=== PATIENT | male | born 1930 | race Caucasian/White ===

== ENCOUNTER 2017-09-08 08:15 | Observation (INO) ==
[2017-09-08] MEDS ORDERED: SALINE FLUSH 10ml SYRINGE IVF PRN (08:25)
[2017-09-08] MEDS ORDERED: CEFTRIAXONE (ER USE ONLY) 1 GM in NS 100 ML IV ONE (08:48)
--- NOTE | 2017-09-08 08:50 | Emergency Department Report ---
General Adult HPI - General Chief complaint: Fever Stated complaint: decreased LOC Time Seen by Provider: 09/08/17 08:25 Source: patient, family, EMS Mode of arrival: EMS Limitations: no limitations - History of Present Illness HPI narrative: 86-year-old male presents to the emergency department with the chief complaint of a fever and not being as active as normal. Patient had a coughing fit yesterday and the group home was concerned for potential aspiration. Patient will only speak in one-word answers and denies any pain or discomfort. He denies any difficulty breathing. Patient states that he has no complaints at this time. arrives and is at bedside. Patient was noted to have a temperature of 101F earlier today. No other complaints or associated symptoms. Patient was at his care facility when his symptoms began earlier today. Patient is a do not resuscitate. - Related Data Home Medications Medication Instructions Recorded Confirmed Acetaminophen [Tylenol] 650 mg PO Q4H PRN 09/08/17 09/08/17 Atorvastatin Calcium 80 mg PO HS 09/08/17 09/08/17 Calcium Carbonate [Tums Ultra] 800 mg PO PRN PRN 09/08/17 09/08/17 Cholecalciferol [Vit. D-3] 1,000 mg PO DAILY 09/08/17 09/08/17 Clopidogrel [Plavix] 75 mg PO DAILY 09/08/17 09/08/17 Famotidine [Pepcid] 20 mg PO DAILY 09/08/17 09/08/17 Guaifenesin/Dextromethorphan 2 tsp PO Q4HPRN PRN 09/08/17 09/08/17 [Guaifenesin Dm Syrup] Melatonin 5 mg PO HS 09/08/17 09/08/17 Milk of Magnesia [Mom] 30 ml PO Q12H PRN 09/08/17 09/08/17 Tamsulosin [Flomax] 0.8 mg PO HS 09/08/17 09/08/17 Previous Rx's Medication Instructions Recorded Lisinopril 40 mg PO DAILY 30 Days #0 06/24/16 CephALEXin [Keflex] 500 mg PO TID #15 cap 09/09/17 Guaifenesin/Dm [Mucinex Dm] 1 tab PO BID #10 tab 09/09/17 Allergies Allergy/AdvReac Type Severity Reaction Status Date / Time Sulfa (Sulfonamide Allergy Unknown Verified 11/05/14 19:26 Antibiotics) Review of Systems Constitutional: Reports: fever, weakness Eyes: Denies: eye pain, vision change ENT: Denies: ear pain, throat pain Cardiovascular: Denies: chest pain, palpitations Respiratory: Reports: cough. Denies: dyspnea Gastrointestinal: Denies: abdominal pain, nausea, vomiting, diarrhea Genitourinary: Denies: dysuria, frequency Musculoskeletal: Denies: back pain, arthralgia Integumentary: Denies: erythema, rash Neurological: Denies: headache, numbness Psychiatric: Denies: anxiety, depression Endocrine: Denies: fatigue, heat or cold intolerance Hematological/Lymphatic: Denies: easy bleeding, easy bruising Allergic/Immunologic: Denies: facial swelling, urticaria PFSH Patient Stated Medical History Cerebrovascular Accident Yes Hypertension Yes Diabetes Mellitus Type 2 Yes Hx Benign Prostatic Yes Hyperplasia Hx Incontinence Yes Clinic Medical History SIRS (systemic inflammatory response syndrome) (Acute Medical) Febrile illness, acute (Acute Medical) Cough (Acute Medical) TIA (transient ischemic attack) (Inactive Medical) Surgical History: Tonsillectomy Family History: Reviewed and Noncontributory. - Social History Smoking status: Former smoker Substance use type: does not use Alcohol intake frequency: does not drink Physical Exam - Limitations Limitations: no limitations - General General appearance: alert, in no apparent distress - Normal Exams: Head:: Normocephalic without trauma Eyes:: Pupils are PERRLA w/ EOMI, No scleral icterus, irritation, or foreign bodies noted ENMT:: No facial trauma, nasal exudates, pharyngeal erythema, or exudates are noted Dental: No fractured, loose, or missing teeth noted Neck:: Full range of motion, without adenopathy, JVD, bruits or thyromegaly Chest/Respirations:: Clear all longoria, with good airflow, and symmetry bilaterally Cardiovascular:: Regular rate and rhythm, without murmur or gallop, Pulses 2+ all extremities, capillary refill, <2 seconds all extremities Abdomen:: Bowel sounds positive, soft, non-tender, non-distended, no hepatosplenomegaly, masses or bruits noted Lymphatic:: No lymphadenopathy, or lymphedema noted Musculoskeletal:: No tenderness, or deformity noted, good range of motion, all extremities Integumentary:: No rashes, hives, or bruising noted, hair and nails, without abnormality Neurological:: Patient is alert, and oriented, cranial nerves, motor/sensory/ cerebellar, exams w/o gross deficits, to observation Psychiatric:: Patient exhibits, appropriate attention, emotion and affect Course Vital Signs Temperature 100.3 F 09/08/17 08:20 Pulse Rate 122 H 09/08/17 08:20 Respiratory Rate 20 09/08/17 08:20 Blood Pressure 138/75 09/08/17 08:20 Pulse Oximetry 91 09/08/17 08:20 Temperature 97.5 F 09/09/17 07:27 Pulse Rate 59 L 09/09/17 07:27 Respiratory Rate 16 09/09/17 07:27 Blood Pressure 122/65 09/09/17 07:27 Pulse Oximetry 94 09/09/17 07:27 Medical Decision Making - MDM Narrative Medical decision making narrative: Labs / imaging were discussed in detail with the patient and family and questions are answered. Patient is given 1 L of normal saline intravenously. Patient is ordered 1 g of Rocephin intravenously at 0848 when sepsis was considered but no source was found to confirm sepsis. Patient does meet SIRS criteria. I do not have a source to diagnose the patient with sepsis. Patient has a clear chest x-ray and unremarkable urinalysis. Patient is discussed with Dr. Abraham Barrera will be admitted to the service of the hospitalist in improved condition. Patient was never hypotensive and had a lactic acid less than 4 in the emergency Department. Patient is admitted to the service of the hospitalist in improved condition. Accepting physician is in agreement with the current plan of management. No further orders. Patient and family are in agreement with the current plan of management. Patient is given 1 L of normal saline intravenously. Patient is ordered 1 g of Rocephin intravenously at 0848 when sepsis was considered but no source of infection was found to confirm sepsis. Patient does meet SIRS criteria. I do not have a source of infection to diagnose the patient with sepsis. Patient has a clear chest x-ray and unremarkable urinalysis. - Differential Diagnosis Viral syndrome, PNA, UTI, Dehydration - Lab Data Result diagrams: 09/09/17 04:26 09/09/17 04:26 Lab Results 09/08/17 09/08/17 09/08/17 Range/Units 08:44 08:44 08:44 WBC 19.7 H (4.5-11.0) T/MM3 RBC 4.75 (4.50-5.90) M/MM3 Hgb 13.7 (13.5-17.5) GM/DL Hct 42.2 (41-53) % MCV 88.8 (80-100) UM3 MCH 28.8 (26-34) UUG MCHC 32.5 (31-37) GM/DL RDW Std Deviation 46.1 (36.9-50.2) FL Plt Count 164 (130-400) T/MM3 MPV 11.2 (9.4-12.4) UM3 Immature Gran % (Auto) Not performed Neut % (Auto) Not performed Lymph % (Auto) Not performed [place] % (Auto) Not performed Eos % (Auto) Not performed Baso % (Auto) Not performed Neut # (Auto) Not performed Lymph # (Auto) Not performed [place] # (Auto) Not performed Eos # (Auto) Not performed Baso # (Auto) Not performed Abs Immat Gran (auto) Not performed Neutrophils % (Manual) 79.0 H (33-66) % Band Neutrophils % 6.0 (0-6) % Lymphocytes % (Manual) 7.0 L (23-45) % Monocytes % (Manual) 8.0 (0-9.0) % Neutrophils # (Manual) 15.6 H (1.8-7.7) T/MM3 Band Neutrophils # 1.2 T/MM3 Lymphocytes # (Manual) 1.4 (1-4.8) T/MM3 Monocytes # (Manual) 1.6 H (0-0.8) T/MM3 RBC Morph Comment Normal Turbidity < 20 (0-20) Sodium 143 (134-144) MEQ/L Potassium 4.2 (3.6-5) MEQ/L Chloride 107 (98-107) MEQ/L Carbon Dioxide 28 (22-30) MEQ/L Anion Gap 8 (5-15) MEQ/L BUN 17.0 (9-20) MG/DL Creatinine 0.8 (0.8-1.5) MG/DL GFR Calculation 91 BUN/Creatinine Ratio 21 (6-26) RATIO Glucose 123 H (75-110) MG/DL Calculated Osmolality 278 (261-280) MOSM/KG Calcium 9.1 (8.4-10.2) MG/DL Total Bilirubin 1.60 H (0.20-1.30) MG/DL Icterus Index < 2 (0-7) AST 21 (17-59) U/L ALT 34 (21-72) U/L Alkaline Phosphatase 71 (38-126) U/L Troponin I < 0.012 (0-0.12) ng/ml Total Protein 6.0 L (6.3-8.2) G/DL Albumin 3.5 (3.5-5.0) G/DL Globulin 2.5 (2.4-3.6) G/DL Albumin/Globulin Ratio 1.4 (1.1-2.2) RATIO Plasma Lactate 1.2 (0.6-2.2) MMOL/L Procalcitonin < 0.05 NG/ML Specimen Hemolysis < 15 (0-25) Ur Collection Type Urine Color (YELLOW) Urine Clarity Urine pH (5.0-8.0) Ur Specific [place] (1.015-1.025) Urine Protein (NEGATIVE) Urine Glucose (UA) (NEGATIVE) Urine Ketones (NEGATIVE) Urine Occult Blood (NEGATIVE) Urine Nitrate (NEGATIVE) Urine Bilirubin (NEGATIVE) Urine Urobilinogen (NORMAL) EU/DL Ur Leukocyte Esterase (NEGATIVE) Urinalysis Comment 09/08/17 Range/Units 10:06 WBC (4.5-11.0) T/MM3 RBC (4.50-5.90) M/MM3 Hgb (13.5-17.5) GM/DL Hct (41-53) % MCV (80-100) UM3 MCH (26-34) UUG MCHC (31-37) GM/DL RDW Std Deviation (36.9-50.2) FL Plt Count (130-400) T/MM3 MPV (9.4-12.4) UM3 Immature Gran % (Auto) Neut % (Auto) Lymph % (Auto) [place] % (Auto) Eos % (Auto) Baso % (Auto) Neut # (Auto) Lymph # (Auto) [place] # (Auto) Eos # (Auto) Baso # (Auto) Abs Immat Gran (auto) Neutrophils % (Manual) (33-66) % Band Neutrophils % (0-6) % Lymphocytes % (Manual) (23-45) % Monocytes % (Manual) (0-9.0) % Neutrophils # (Manual) (1.8-7.7) T/MM3 Band Neutrophils # T/MM3 Lymphocytes # (Manual) (1-4.8) T/MM3 Monocytes # (Manual) (0-0.8) T/MM3 RBC Morph Comment Turbidity (0-20) Sodium (134-144) MEQ/L Potassium (3.6-5) MEQ/L Chloride (98-107) MEQ/L Carbon Dioxide (22-30) MEQ/L Anion Gap (5-15) MEQ/L BUN (9-20) MG/DL Creatinine (0.8-1.5) MG/DL GFR Calculation BUN/Creatinine Ratio (6-26) RATIO Glucose (75-110) MG/DL Calculated Osmolality (261-280) MOSM/KG Calcium (8.4-10.2) MG/DL Total Bilirubin (0.20-1.30) MG/DL Icterus Index (0-7) AST (17-59) U/L ALT (21-72) U/L Alkaline Phosphatase (38-126) U/L Troponin I (0-0.12) ng/ml Total Protein (6.3-8.2) G/DL Albumin (3.5-5.0) G/DL Globulin (2.4-3.6) G/DL Albumin/Globulin Ratio (1.1-2.2) RATIO Plasma Lactate (0.6-2.2) MMOL/L Procalcitonin NG/ML Specimen Hemolysis (0-25) Ur Collection Type Urine, catheter Urine Color Yellow (YELLOW) Urine Clarity Clear Urine pH 6.5 (5.0-8.0) Ur Specific [place] 1.015 (1.015-1.025) Urine Protein Negative (NEGATIVE) Urine Glucose (UA) Negative (NEGATIVE) Urine Ketones Negative (NEGATIVE) Urine Occult Blood Negative (NEGATIVE) Urine Nitrate Negative (NEGATIVE) Urine Bilirubin Negative (NEGATIVE) Urine Urobilinogen 1.0 (NORMAL) EU/DL Ur Leukocyte Esterase Negative (NEGATIVE) Urinalysis Comment Microscopic not ind. - Radiology Data CT HEAD - No acute processes. CXR - No acute processes. - EKG Data EKG #1 EKG results narrative: Sinus Tachycardia. 116 bpm. No STEMI. Disposition Clinical Impression: Tachycardia, SIRS (systemic inflammatory response syndrome) Fever Qualifiers: Encounter type: initial encounter Leukocytosis Qualifiers: Leukocytosis type: unspecified Qualified Code(s): D72.829 - Elevated white blood cell count, unspecified Disposition: 02 To [facility] Condition: Stable Time of Disposition: 11:00 (Admit. Dr. Callahan. ) - Seen By: physician
[2017-09-08] MEDS ORDERED: NS 1,000 ML IV ONE (09:14)
--- NOTE | 2017-09-08 09:16 | XRay Report ---
EXAM: XR chest 1V 0855 hours COMPARISON: 06/23/2016. HISTORY: cough . FINDINGS:There is tortuosity to the descending aorta. Heart is upper limits of normal to mildly enlarged. The pulmonary vascularity appears unremarkable. There are linear opacities seen at the lung bases representing atelectasis. There is no evidence for pleural effusion. There is no evidence for a pneumothorax. No osseous abnormalities are identified. IMPRESSION: 1. Mild basilar atelectatic changes. 2. Heart is upper limits of normal to mildly enlarged. [place] [facility] [place]
--- NOTE | 2017-09-08 09:28 | CT Scan Report ---
EXAM: CT head/brain wo con COMPARISON: 05/12/2017. 11/05/2014. HISTORY: ams . Altered mental status. LOCATION OF DICTATION: [facility] – [place], [place]. TECHNIQUE: Without IV contrast, axial images were obtained through the brain and reviewed in brain, soft tissue, bone, and subdural windows. The current CT scan was performed using radiation dose-reduction techniques. FINDINGS: The CSF spaces are prominent likely related to atrophy in keeping with age. There is again noted extensive periventricular deep white matter hypodensities likely related to small vessel ischemic disease. The suprasellar cistern and quadrigeminal plate cisterns are intact. The johnson-white junctions are distinct. No sulcal effacement is identified. The basal ganglia, posterior fossa and brainstem region appear unremarkable. There is no evidence for midline shift or mass effect. The midline structures appear unremarkable. No osseous abnormalities are identified. There is complete aspiration of the right maxilla sinus which could be related sinusitis. The remainder of the paranasal sinuses and mastoid air cells are clear. This is slightly worsened compared to the prior exam. IMPRESSION: 1. Atrophy in keeping with age. 2. Extensive periventricular deep white matter hypodensities are noted likely related to small vessel ischemic disease. 3. There is now complete opacification of the right maxillary sinus which has worsened compared to the prior exam. This is likely related to sinusitis. Note: This report was generated soon after the exam was performed and is immediately available to the ordering clinician on 09/08/2017 9:23 AM. .
[2017-09-08 12:04] VITALS: BMI 26.4
[2017-09-08] MEDS: NS 1,000 ML IV SCH ×2 (12:15→22:43)
--- NOTE | 2017-09-08 12:35 | History & Physical Report ---
History of Present Illness Date: 09/08/17 Chief complaint: febrile illness, decreased level of consciousness HPI: Masood Mcgee is a very pleasant 86-year-old male resident at [facility] who presented to [facility] ED today, 09/08/17, for evaluation of fever and decreased level of consciousness. His is present on exam and contributes to the history. She reports that her daughter called her this morning to inform her that nursing from [facility] had call her to let her know that Masood was sick. Jes, the patient's , lives on the 3rd floor at [facility] in independent living and went to Masood's room, arriving in time to see EMS loading him onto the stretcher for transport. Masood reports that he feels ok. He admits to a recent cough but denies any known fevers, chill, chest pain , shortness of breath, abdominal pain, nausea, vomiting or dysuria. He states that his cough is non-productive. He also reports that his appetite has been declining the past few days. He denies any diarrhea or constipation. Upon arrival to the ED, he was noted to have an elevated temperature at 100.3. He was also tachycardic at 122 with a respiratory rate of 20 and pulse ox of 91% on room air. Labs were obtained revealing leukocytosis with WBC 19.7, 79% neutrophils and 6% bands and hyperglycemia with glucose at 123. Troponin was negative. Lactate was 1.2 and procalcitonin was <0.05. UA was unremarkable. CT head was obtained given his altered mental status and showed atrophy consistent with his age, extensive periventricular deep white matter hypodensities most likely related to small vessel ischemic disease and complete opacification of the right maxillary sinus consistent with sinusitis. Chest x- ray revealed mild basilar atelectatic changes and heart was at the upper limits of normal to mildly enlarged. In light of his fever and leukocytosis, he was given Rocephin 1g IV for empiric treatment as well as 1L NS bolus. Dr. Barrera was contacted and he was admitted into observation status for further evaluation and treatment. His length of stay is not expected to exceed more than 2 over nights. He has a known history of hypertension, BPH and cardiovascular disease with prior TIAs. He follows with Dr. Franck Stallings. Review of Systems All systems PM: 10-point ROS was reviewed, no additional remarkable complaints except - Constitutional Constitutional: Present: daytime sleepiness, fatigue, malaise, weakness. Absent : chills, fever(s), headache(s) - EENMT Eyes: Absent: change in vision, photophobia Ears: Absent: ear pain Balance: Absent: falling to one side Nose: Absent: nosebleeds Mouth/Throat: Absent: sore throat, dry mouth - Cardiovascular Cardiovascular: Present: edema. Absent: chest pain, palpitations, syncope Rhythm: Present: regular rhythm Vascular: Present: pedal edema - Respiratory Respiratory: Present: cough. Absent: dyspnea, hemoptysis, wheezing - Gastrointestinal Gastrointestinal: Absent: abdominal pain, change in bowel habits, constipation, diarrhea, nausea, vomiting - Genitourinary Genitourinary: Present: urinary frequency. Absent: dysuria, flank pain, hematuria - Musculoskeletal Musculoskeletal: Present: muscle weakness. Absent: back pain, deformity, neck pain - Integumentary/Breasts Integumentary: Present: other (eczema). Absent: rash - Neurological Neurological: Present: memory loss, weakness. Absent: abnormal movements, dizziness, focal weakness, headache(s), tremor(s) - Psychiatric Psychiatric: Absent: anxiety, depression, hallucinations - Endocrine Endocrine: Present: flushing. Absent: palpitations - Hematologic/Lymphatic Hematologic/Lymphatic: Absent: easy bruising - Allergic/Immunologic Allergic/Immunologic: Absent: seasonal rhinorrhea [facility] Patient Stated Medical History Hypertension. 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 Cardiovascular disease. History of urinary incontinence. BPH. CAD. Dysphagia. Hyperlipidemia. Type II Diabetes, no complications. Gait instability. GERD. Surgical History: Tonsillectomy. Family History Updates: Mother - , age 75, "heart problems". Father - , age 67, "heart problems", [place]. 2 living daughters and 1 living son reportedly all healthy. Son - , age 14, rhabdomyosarcoma. - Social History Smoking status: Former smoker (quit 1974.) Substance use type: does not use Alcohol intake frequency: does not drink Housing: prison Household members: spouse Current occupational status: retired Does patient use chewing tobacco?: No Current residence: [facility] Social history: PCP - Dr. Stallings. Patient is to Jes, for the past 64 years with 3 living children and 1 son. Medications Home Medications Medication Instructions Recorded Confirmed Type Acetaminophen [Tylenol] 650 mg PO Q4H PRN 09/08/17 09/08/17 History Atorvastatin Calcium 80 mg PO HS 09/08/17 09/08/17 History Calcium Carbonate [Tums Ultra] 800 mg PO PRN PRN 09/08/17 09/08/17 History Cholecalciferol [Vit. D-3] 1,000 mg PO DAILY 09/08/17 09/08/17 History Clopidogrel [Plavix] 75 mg PO DAILY 09/08/17 09/08/17 History Famotidine [Pepcid] 20 mg PO DAILY 09/08/17 09/08/17 History Guaifenesin/Dextromethorphan 2 tsp PO Q4HPRN PRN 09/08/17 09/08/17 History [Guaifenesin Dm Syrup] Melatonin 5 mg PO HS 09/08/17 09/08/17 History Milk of Magnesia [Mom] 30 ml PO Q12H PRN 09/08/17 09/08/17 History Tamsulosin [Flomax] 0.8 mg PO HS 09/08/17 09/08/17 History Allergies Allergy/AdvReac Type Severity Reaction Status Date / Time Sulfa (Sulfonamide Allergy Unknown Verified 11/05/14 19:26 Antibiotics) Exam Vital Signs: Temperature 99.3 F 09/08/17 11:41 Pulse Rate 110 H 09/08/17 11:41 Respiratory Rate 18 09/08/17 11:41 Blood Pressure 116/69 09/08/17 11:41 Pulse Oximetry 92 09/08/17 11:41 Telemetry Rhythm: Sinus Tachycardia (rate 100) Height/Weight/BMI: Height 5 ft 7 in Weight 169 lb 1.513 oz Body Mass Index 26.4 Comments: Patient is seen shortly after his arrival to room 144 with his nurse and , Jes, present on exam. - Constitutional Present: no acute distress, well nourished, well developed, cooperative - Routine HEENT Exam Head: Present: normocephalic, atraumatic Eye: Present: PERRL. Absent: conjunctival icterus ENT: Present: mucous membranes dry - Routine Neck Exam Present: supple, trachea midline - Routine Chest/Breast/Axilla Exam Chest wall: Absent: tenderness - Routine Respiratory Exam Present: decreased breath sounds, CTA bilaterally. Absent: respiratory distress , stridor, wheezes, crackles - Routine Cardiovascular Exam Present: RRR, S1, S2 - Routine Abdominal Exam Present: soft, normoactive bowel sounds, non tender - Routine Extremities Exam Present: edema (2-3+ bilaterally), pulses intact - Routine Back/Spine/Pelvis Exam Back/Spine: Present: full ROM, kyphosis. Absent: vertebral tenderness, erythema - Routine Skin Exam Present: intact, dry, warm. Absent: jaundice Comments: eczema; low grade temperature at 100.3. - Routine Neurological Exam Present: alert, moving all extremities, hearing grossly intact, normal speech. Absent: facial asymmetry patient orientated to person and place but unable to recall some information regarding situation and recent health. - Routine Psychiatric Exam Present: cooperative - Additional findings Additional findings: Holly Lungs: decrease, but no crackles/wheezes/distress CV: regular MSE: awake alert , speech slow. Results - Labs CBC & Chem 7: 09/08/17 08:44 09/08/17 08:44 - Imaging and Cardiology Chest x-ray Status: image reviewed by me Additional comments: Date of Exam: 09/08/17 Type of Exam(s): XR chest 1V EXAM: XR chest 1V 0855 hours IMPRESSION: 1. Mild basilar atelectatic changes. 2. Heart is upper limits of normal to mildly enlarged. CT scan - head Status: image reviewed by me Additional comments: Date of Exam: 09/08/17 Type of Exam(s): CT head/brain wo con COMPARISON: 05/12/2017. 11/05/2014. IMPRESSION: 1. Atrophy in keeping with age. 2. Extensive periventricular deep white matter hypodensities are noted likely related to small vessel ischemic disease. 3. There is now complete opacification of the right maxillary sinus which has worsened compared to the prior exam. This is likely related to sinusitis. Assessment and Plan (1) SIRS (systemic inflammatory response syndrome) Current visit: Yes Status: Acute (2) Febrile illness, acute Current visit: Yes Status: Acute (3) Cough Current visit: Yes Status: Acute Assessment and Plan: Assessment. SIRS, present on admission as indicated by leukocytosis, fever, tachycardia, tachypnea and concern for AMS. Leukocytosis, present on admission. Hypertension. 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 Cardiovascular disease. History of BPH and urinary incontinence. Dysphagia. Hyperlipidemia. Type II Diabetes, no complications. Gait instability. GERD. Plan - 09/08/17 (Admission). Admit to observation status under the care of Dr. Barrera. Will obtain respiratory panel to assess for viral cause as patient admits to recent dry cough. Patient admits to having received his flu shot this year. Consider initiation of Tamiflu if influenza positive. Rocephin 1g IV given in ED. Will continue Rocephin for empiric antimicrobial coverage. Mucinex for mucolytic effect. CT head revealed complete opacification of right maxillary sinus. Patient denies any facial pain or sinus pressure. No facial cellulitis. CXR revealed mild basilar atelectatic changes with questionable cardiomegaly. Clear lung sounds on exam without cough or respiratory distress. Encourage incentive spirometry. Lactate 1.2 on admission. Blood cultures pending. Will recheck and continue to monitor. Procalcitonin <0.05 and troponin <0.012. Recheck CXR tomorrow to see if any pneumonia developed with hydration. Tylenol as needed for fever/pain. NS 75cc/hr for hydration and encourage oral intake. 1L NS bolus given in ED. Monitor closely for signs of fluid overload. Monitor daily weights closely. Continue to medications - patient may take his own medications. History of dysphagia. Will consult speech for diet consistency recommendations as chart states thin liquids but patient's reports that he has his liquids thickened. Mechanical soft with ground meats. Monitor closely as he is a high aspiration risk. Monitor closely on telemetry. Oxygen as needed to maintain pulse ox >90%. He does not use oxygen at home and is not currently on oxygen. SCDs for DVT prophylaxis. Repeat CBC and BMP in AM to monitor blood counts, electrolytes and renal function. Patient is noted to be a DNR. Upon discharge, patient's care will be returned to his PCP, Dr. Stallings. Holly Have independently interviewed and examined pt. Chart reviewed. Case discussed with ED physician and my PA. Care plan developed with my supervision; agree with above. Has been having cough, last night problematic. This morning temp elevated at his alf at 101. More somnolent. Patient feeling very weak. Oral drive decreased the past several days. Patient denies pain or discomfort. Not hurting in chest from cough. Breathing not feeling short. No nausea or ab pain. With decreased LOC and temp elevation, taken to ED for evaluation. WBC with elevation. Patient Tachy. Given IVF and Rocephin. CXR without infiltrate. UA negative. Patient placed in OBS for further evaluation. DVT Prophylaxis: SCD's GI Prophylaxis: Pepcid Resuscitation Status: Do Not Resuscitate - Time spent with patient Time with patient PN: 70 minutes Sepsis Assessment - Evaluation Possible source: unknown Confirmed Suspected Infection: No SIRS Criteria: acute mental status change, temperature > or equal to 100.4, pulse > or equal to 90 beats/minute, WBC > or equal to 12,000, RR > or equal to 20 Hospital Course Summary Disclaimer: The visit summary below is not to be considered part of the above Progress Note. Hospital Course: Assessment. SIRS, present on admission as indicated by leukocytosis, fever, tachycardia, tachypnea and concern for AMS. Leukocytosis, present on admission. Hypertension. 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 Cardiovascular disease. History of BPH and urinary incontinence. Dysphagia. Hyperlipidemia. Type II Diabetes, no complications. Gait instability. GERD. Plan - 09/08/17 (Admission). Admit to observation status under the care of Dr. Barrera. Will obtain respiratory panel to assess for viral cause as patient admits to recent dry cough. Patient admits to having received his flu shot this year. Consider initiation of Tamiflu if influenza positive. Rocephin 1g IV given in ED. Will continue Rocephin for empiric antimicrobial coverage. Mucinex for mucolytic effect. CT head revealed complete opacification of right maxillary sinus. Patient denies any facial pain or sinus pressure. No facial cellulitis. CXR revealed mild basilar atelectatic changes with questionable cardiomegaly. Clear lung sounds on exam without cough or respiratory distress. Encourage incentive spirometry. Lactate 1.2 on admission. Blood cultures pending. Will recheck and continue to monitor. Procalcitonin <0.05 and troponin <0.012. Tylenol as needed for fever/pain. NS 75cc/hr for hydration and encourage oral intake. 1L NS bolus given in ED. Monitor closely for signs of fluid overload. Monitor daily weights closely. Continue to medications - patient may take his own medications. History of dysphagia. Will consult speech for diet consistency recommendations as chart states thin liquids but patient's reports that he has his liquids thickened. Mechanical soft with ground meats. Monitor closely as he is a high aspiration risk. Monitor closely on telemetry. Oxygen as needed to maintain pulse ox >90%. He does not use oxygen at home and is not currently on oxygen. SCDs for DVT prophylaxis. Repeat CBC and BMP in AM to monitor blood counts, electrolytes and renal function. Patient is noted to be a DNR. Upon discharge, patient's care will be returned to his PCP, Dr. Stallings. Addendum entered and electronically signed by DREW Velazquez 09/08/17 15: 10: Nursing expressed concern about a circular lesion noted to the patient's left lateral knee. Re-evaluation of the patient's lower extremities revealed area consistent with psoriasis without discharge, red streaking or signs of infection. SCDs were removed during exam and significant depressions were noted due to the patient's pitting edema. Will place MAXI hose in light of significant edema. Left lower extremity larger than right. Respiratory panel negative. 2+ pedal pulses bilaterally. Given the patient's increased swelling to left>right, will obtained doppler of left lower extremity now - results pending.
[2017-09-08] MEDS ORDERED: ACETAMINOPHEN 500 MG TABLET PO PRN (13:13)
[2017-09-08] MEDS ORDERED: CALCIUM CARBONATE Chewable 750mg TABLET PO PRN (13:13)
[2017-09-08] MEDS ORDERED: ONDANSETRON 4 MG/2 ML INJECTION IVP PRN (14:13)
--- NOTE | 2017-09-08 16:22 | Ultrasound Report ---
Indication: Left lower extremity swelling PROCEDURE: US venous doppler LE LT: Encounter: Initial Comparison: None Technique: Color Doppler duplex and grayscale sonographic imaging of the left lower extremity was performed. Findings: There is no evidence for acute deep venous thrombosis in the left thigh. Specifically, serial graded compression was performed from the inguinal ligament to the popliteal bifurcation, on the left thigh, demonstrating appropriate compressibility of the deep venous system. In addition, color and pulsed Doppler demonstrate appropriate spontaneous flow, variation with respiration, and augmentation with calf compression. At the ankle, normal flow is identified in the posterior tibial veins; these vessels are also normal in caliber. Impression: No evidence of acute DVT in the left lower limb. .
[2017-09-08] MEDS: GUAIFENESIN/D-METHORPHAN 600mg/30mg TABLET PO SCH (20:15)
[2017-09-08] MEDS ORDERED: ATORVASTATIN 40 MG TABLET PO SCH (21:00)
[2017-09-08] MEDS ORDERED: TAMSULOSIN 0.4 MG CAPSULE PO SCH (21:00)
[2017-09-08] MEDS ORDERED: MELATONIN 5 MG TABLET PO SCH (21:00)
[2017-09-09 07:28] VITALS: BP 122/65; PULSE 59; RESP 16; TEMP 97.5; O2SAT 94
[2017-09-09] MEDS: NS 1,000 ML IV SCH (08:59)
[2017-09-09] MEDS: GUAIFENESIN/D-METHORPHAN 600mg/30mg TABLET PO SCH (08:59)
[2017-09-09] MEDS ORDERED: CLOPIDOGREL 75 MG TABLET PO SCH (09:00)
[2017-09-09] MEDS ORDERED: FAMOTIDINE 20 MG TABLET PO SCH (09:00)
[2017-09-09] MEDS ORDERED: CEFTRIAXONE 1 G in NS 100 ML IV SCH (09:00)
[2017-09-09] MEDS ORDERED: LISINOPRIL 20 MG TABLET PO SCH (09:00)
--- NOTE | 2017-09-09 09:03 | XRay Report ---
INDICATION: F/U - ? inflitrate PROCEDURE: CHEST 2-VIEWS UPRIGHT (PA & LAT) Encounter: Initial COMPARISON: September 08, 2017 FINDINGS: The lungs are stable in appearance. There is some airspace opacity in the posterior left lower lobe retrocardiac region. No pneumothorax or definite effusion. Heart size and mediastinal contours are stable. Pulmonary vascularity is mildly enlarged. Impression: 1. Left lower lobe airspace disease could represent atelectasis or pneumonia. 2. Mild pulmonary vascular congestion. .
--- NOTE | 2017-09-09 11:29 | Progress Note ---
- Date 09/09/17 Subjective: F/U: SIRS, Febrile process, Cough Doing better this morning-not feeling as weak and confused as yesterday. Able to be up and ambulate better-strength still decreased but not feeling dizzy or unsteady when up. Not having cough or congestion. No SOA or wheezing; breathing on RA without difficulty. No pain with breathing. Eating well-no mouth pain, difficulty swallowing, nausea, or ab pain. Had bowel movement this am-no diarrhea. Urinating okay. No f/c. Objective Vital signs: Temperature 97.5 F 09/09/17 07:27 Pulse Rate 59 L 09/09/17 07:27 Respiratory Rate 16 09/09/17 07:27 Blood Pressure 122/65 09/09/17 07:27 Pulse Oximetry 94 09/09/17 07:27 Height/Weight/BMI: Height 1.7 m Weight 77.5 kg Body Mass Index 26.4 - Constitutional Present: no acute distress, well nourished, well developed, average body habitus , cooperative. Absent: agitated, somnolent - Routine HEENT Exam Head: Present: normocephalic, atraumatic Eye: Present: EOMI, PERRL ENT: Present: mucous membranes moist - Routine Respiratory Exam Present: CTA bilaterally. Absent: rales, respiratory distress, rhonchi, wheezes , crackles - Routine Cardiovascular Exam Present: RRR, no murmur - Routine Abdominal Exam Present: soft, normoactive bowel sounds, non distended, non tender. Absent: guarding - Routine Extremities Exam Present: edema (+2 LE, MAXI hose in place ). Absent: cyanosis, clubbing - Routine Musculoskeletal Exam Musculoskeletal: Present: no clubbing or cyanosis, normal strength - Routine Skin Exam Present: dry, warm - Routine Neurological Exam Present: alert, oriented X3, CN II-XII intact, moving all extremities, vision grossly intact, hearing grossly intact, normal speech. Absent: motor deficit, altered mental status - Routine Psychiatric Exam Present: normal affect, cooperative. Absent: anxious, agitated Results - Labs CBC & Chem 7: 09/09/17 04:26 09/09/17 04:26 Assessment and Plan (1) SIRS (systemic inflammatory response syndrome) Current visit: Yes Status: Acute (2) Febrile illness, acute Current visit: Yes Status: Acute (3) Cough Current visit: Yes Status: Acute Assessment and Plan: Assessment. SIRS, present on admission as indicated by leukocytosis, fever, tachycardia, tachypnea and concern for AMS. Leukocytosis, present on admission. Hypertension. 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 Cardiovascular disease. History of BPH and urinary incontinence. Dysphagia. Hyperlipidemia. Type II Diabetes, no complications. Gait instability. GERD. Plan WBC normalized, febrile process resolve, mentation at baseline. Repeat CXR with small area or atelectasis vs pneumonia - likely early pneumonia. With respiratory and clinic status improved, feel discharge to home reasonable. Initiate cephalexin 500mg po TID for 5 days starting tomorrow for respiratory coverage. Can continue Mucinex DM BID for 5 days. Will set up PT at his care facility to help improve strength. F/U wit Dr Stallings in 1 week for evaluation. See orders for details. Case discussed with CM and patients . Time spent with care and discharge greater than 30 minutes. DVT Prophylaxis: SCD's Resuscitation Status: Do Not Resuscitate Hospital Course Summary Disclaimer: The visit summary below is not to be considered part of the above Progress Note. Hospital Course: Assessment. SIRS, present on admission as indicated by leukocytosis, fever, tachycardia, tachypnea and concern for AMS. Leukocytosis, present on admission. Hypertension. 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 Cardiovascular disease. History of BPH and urinary incontinence. Dysphagia. Hyperlipidemia. Type II Diabetes, no complications. Gait instability. GERD. Plan - 09/08/17 (Admission) Admit to observation status under the care of Dr. Barrera. Will obtain respiratory panel to assess for viral cause as patient admits to recent dry cough. Patient admits to having received his flu shot this year. Consider initiation of Tamiflu if influenza positive. Rocephin 1g IV given in ED. Will continue Rocephin for empiric antimicrobial coverage. Mucinex for mucolytic effect. CT head revealed complete opacification of right maxillary sinus. Patient denies any facial pain or sinus pressure. No facial cellulitis. CXR revealed mild basilar atelectatic changes with questionable cardiomegaly. Clear lung sounds on exam without cough or respiratory distress. Encourage incentive spirometry. Lactate 1.2 on admission. Blood cultures pending. Will recheck and continue to monitor. Procalcitonin <0.05 and troponin <0.012. Recheck CXR tomorrow to see if any pneumonia developed with hydration. Tylenol as needed for fever/pain. NS 75cc/hr for hydration and encourage oral intake. 1L NS bolus given in ED. Monitor closely for signs of fluid overload. Monitor daily weights closely. Continue to medications - patient may take his own medications. History of dysphagia. Will consult speech for diet consistency recommendations as chart states thin liquids but patient's reports that he has his liquids thickened. Mechanical soft with ground meats. Monitor closely as he is a high aspiration risk. Monitor closely on telemetry. Oxygen as needed to maintain pulse ox >90%. He does not use oxygen at home and is not currently on oxygen. SCDs for DVT prophylaxis. Repeat CBC and BMP in AM to monitor blood counts, electrolytes and renal function. Patient is noted to be a DNR. Upon discharge, patient's care will be returned to his PCP, Dr. Stallings. 09/09/17 WBC normalized, febrile process resolve, mentation at baseline. Repeat CXR with small area or atelectasis vs pneumonia - likely early pneumonia. With respiratory and clinic status improved, feel discharge to home reasonable. Initiate cephalexin 500mg po TID for 5 days starting tomorrow for respiratory coverage. Can continue Mucinex DM BID for 5 days. Will set up PT at his care facility to help improve strength. F/U kenyatta Stallings in 1 week for evaluation. See orders for details.
--- NOTE | 2017-09-09 11:55 | Discharge Summary ---
Discharge Information Date of admission: 09/08/17 10:35 Anticipated date of discharge: 09/09/17 Attending Physician: Abraham Barrera MD Primary care physician: Dakota Stallings MD Consults: Speech Therapy - Discharge Diagnosis (1) SIRS (systemic inflammatory response syndrome) Status: Acute (2) Febrile illness, acute Status: Acute (3) Cough Status: Acute Discharge diagnosis SIRS, present on admission as indicated by leukocytosis, fever, tachycardia, tachypnea and concern for AMS. 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 Cardiovascular disease History of BPH and urinary incontinence Dysphagia Hyperlipidemia Type II Diabetes, no complications Gait instability GERD - Laboratory Labs: Admit Lab 09/08/17 08:44 WBC 19.7 H Hgb 13.7 Hct 42.2 MCV 88.8 Neutrophils % (Manual) 79.0 H Band Neutrophils % 6.0 Lymphocytes % (Manual) 7.0 L Monocytes % (Manual) 8.0 Admit Lab 09/08/17 08:44 Sodium 143 Potassium 4.2 Chloride 107 Carbon Dioxide 28 Anion Gap 8 BUN 17.0 Creatinine 0.8 GFR Calculation 91 BUN/Creatinine Ratio 21 Glucose 123 H Calculated Osmolality 278 Total Bilirubin 1.60 H AST 21 ALT 34 Alkaline Phosphatase 71 Troponin I < 0.012 Total Protein 6.0 L Albumin 3.5 Globulin 2.5 Plasma Lactate 1.2 09/09/17 04:26 09/09/17 04:26 - Radiology Radiology: Date of Exam: 09/08/17 EXAM: XR chest 1V FINDINGS:There is tortuosity to the descending aorta. Heart is upper limits of normal to mildly enlarged. The pulmonary vascularity appears unremarkable. There are linear opacities seen at the lung bases representing atelectasis. There is no evidence for pleural effusion. There is no evidence for a pneumothorax. No osseous abnormalities are identified. IMPRESSION: 1. Mild basilar atelectatic changes. 2. Heart is upper limits of normal to mildly enlarged. Date of Exam: 09/08/17 EXAM: CT head/brain wo con FINDINGS: The CSF spaces are prominent likely related to atrophy in keeping with age. There is again noted extensive periventricular deep white matter hypodensities likely related to small vessel ischemic disease. The suprasellar cistern and quadrigeminal plate cisterns are intact. The johnson-white junctions are distinct. No sulcal effacement is identified. The basal ganglia, posterior fossa and brainstem region appear unremarkable. There is no evidence for midline shift or mass effect. The midline structures appear unremarkable. No osseous abnormalities are identified. There is complete aspiration of the right maxilla sinus which could be related sinusitis. The remainder of the paranasal sinuses and mastoid air cells are clear. This is slightly worsened compared to the prior exam. IMPRESSION: 1. Atrophy in keeping with age. 2. Extensive periventricular deep white matter hypodensities are noted likely related to small vessel ischemic disease. 3. There is now complete opacification of the right maxillary sinus which has worsened compared to the prior exam. This is likely related to sinusitis. Date of Exam: 09/08/17 PROCEDURE: US venous doppler LE Impression: No evidence of acute DVT in the left lower limb. Date of Exam: 09/09/17 PROCEDURE: CHEST 2-VIEWS UPRIGHT (PA & LAT) FINDINGS: The lungs are stable in appearance. There is some airspace opacity in the posterior left lower lobe retrocardiac region. No pneumothorax or definite effusion. Heart size and mediastinal contours are stable. Pulmonary vascularity is mildly enlarged. Impression: 1. Left lower lobe airspace disease could represent atelectasis or pneumonia. 2. Mild pulmonary vascular congestion. History of Present Illness HPI: Masood Mcgee is a very pleasant 86-year-old male resident at [facility] who presented to [facility] today, 09/08/17, for evaluation of fever and decreased level of consciousness. His is present on exam and contributes to the history. She reports that her daughter called her this morning to inform her that nursing from [facility] had call her to let her know that Masood was sick. Jes, the patient's , lives on the 3rd floor at [facility] in independent living and went to Masood's room, arriving in time to see EMS loading him onto the stretcher for transport. Masood reports that he feels ok. He admits to a recent cough but denies any known fevers, chill, chest pain , shortness of breath, abdominal pain, nausea, vomiting or dysuria. He states that his cough is non-productive. He also reports that his appetite has been declining the past few days. He denies any diarrhea or constipation. Upon arrival to the ED, he was noted to have an elevated temperature at 100.3. He was also tachycardic at 122 with a respiratory rate of 20 and pulse ox of 91% on room air. Labs were obtained revealing leukocytosis with WBC 19.7, 79% neutrophils and 6% bands and hyperglycemia with glucose at 123. Troponin was negative. Lactate was 1.2 and procalcitonin was <0.05. UA was unremarkable. CT head was obtained given his altered mental status and showed atrophy consistent with his age, extensive periventricular deep white matter hypodensities most likely related to small vessel ischemic disease and complete opacification of the right maxillary sinus consistent with sinusitis. Chest x- ray revealed mild basilar atelectatic changes and heart was at the upper limits of normal to mildly enlarged. In light of his fever and leukocytosis, he was given Rocephin 1g IV for empiric treatment as well as 1L NS bolus. Dr. Barrera was contacted and he was admitted into observation status for further evaluation and treatment. His length of stay is not expected to exceed more than 2 over nights. He has a known history of hypertension, BPH and cardiovascular disease with prior TIAs. He follows with Dr. Franck Stallings. For complete details of the H&P refer to that document. Objective Vital signs: Temperature 97.5 F 09/09/17 07:27 Pulse Rate 59 L 09/09/17 07:27 Respiratory Rate 16 09/09/17 07:27 Blood Pressure 122/65 09/09/17 07:27 Pulse Oximetry 94 09/09/17 07:27 Height/Weight/BMI: Height 1.7 m Weight 77.5 kg Body Mass Index 26.4 Hospital Course This is a general summary of the patient's hospital course. For more details refer to the complete medical record. Hospital course: Assessment. SIRS, present on admission as indicated by leukocytosis, fever, tachycardia, tachypnea and concern for AMS. Leukocytosis, present on admission. Hypertension. 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 Cardiovascular disease. History of BPH and urinary incontinence. Dysphagia. Hyperlipidemia. Type II Diabetes, no complications. Gait instability. GERD. Plan - 09/08/17 (Admission) Admit to observation status under the care of Dr. Barrera. Will obtain respiratory panel to assess for viral cause as patient admits to recent dry cough. Patient admits to having received his flu shot this year. Consider initiation of Tamiflu if influenza positive. Rocephin 1g IV given in ED. Will continue Rocephin for empiric antimicrobial coverage. Mucinex for mucolytic effect. CT head revealed complete opacification of right maxillary sinus. Patient denies any facial pain or sinus pressure. No facial cellulitis. CXR revealed mild basilar atelectatic changes with questionable cardiomegaly. Clear lung sounds on exam without cough or respiratory distress. Encourage incentive spirometry. Lactate 1.2 on admission. Blood cultures pending. Will recheck and continue to monitor. Procalcitonin <0.05 and troponin <0.012. Recheck CXR tomorrow to see if any pneumonia developed with hydration. Tylenol as needed for fever/pain. NS 75cc/hr for hydration and encourage oral intake. 1L NS bolus given in ED. Monitor closely for signs of fluid overload. Monitor daily weights closely. Continue to medications - patient may take his own medications. History of dysphagia. Will consult speech for diet consistency recommendations as chart states thin liquids but patient's reports that he has his liquids thickened. Mechanical soft with ground meats. Monitor closely as he is a high aspiration risk. Monitor closely on telemetry. Oxygen as needed to maintain pulse ox >90%. He does not use oxygen at home and is not currently on oxygen. Monitor respiratory status. Hold lisinopril due to acute febrile illness to minimize risk for hypotension. Monitor blood pressure. SCDs for DVT prophylaxis. Repeat CBC and BMP in AM to monitor blood counts, electrolytes and renal function. Patient is noted to be a DNR. Upon discharge, patient's care will be returned to his PCP, Dr. Stallings. 09/09/17 WBC normalized, febrile process resolve, mentation at baseline. Repeat CXR with small area or atelectasis vs pneumonia - likely early pneumonia. With respiratory and clinic status improved, feel discharge to home reasonable. Initiate cephalexin 500mg po TID for 5 days starting tomorrow for respiratory coverage. Can continue Mucinex DM BID for 5 days. Will set up PT at his care facility to help improve strength. F/U wit Dr Stallings in 1 week for evaluation. See orders for details. DVT Prophylaxis: SCD's Discharge Plan - Discharge Disposition Discharge Date: 09/09/17 Disposition: 04 To [facility] Home/Facility *Condition: Stable Reason For Visit (Visit label in EMR): fever,tachycardia,leukocytosis - Discharge Medications *Discharge Medications: New CephALEXin [Keflex] 500 mg PO TID #15 cap Guaifenesin/Dm [Mucinex Dm] 1 tab PO BID #10 tab Continue Atorvastatin Calcium 80 mg PO HS Milk of Magnesia [Mom] 30 ml PO Q12H PRN PRN Reason: Constipation Calcium Carbonate [Tums Ultra] 800 mg PO PRN PRN PRN Reason: Prn Orders Guaifenesin/Dextromethorphan [Guaifenesin Dm Syrup] 2 tsp PO Q4HPRN PRN PRN Reason: Cough Famotidine [Pepcid] 20 mg PO DAILY Melatonin 5 mg PO HS Acetaminophen [Tylenol] 650 mg PO Q4H PRN PRN Reason: Pain Lisinopril 40 mg PO DAILY 30 Days #0 Clopidogrel [Plavix] 75 mg PO DAILY Cholecalciferol [Vit. D-3] 1,000 mg PO DAILY Tamsulosin [Flomax] 0.8 mg PO HS - Discharge Packet/Instructions *Diet: Mechanical soft with [place] thick liquids *Activity: Walker for assistance *Pain Management/Treatment: Tylenol as needed *Wound Care: N/A Additional Instructions: Use Mucinex DM twice a day for 5 days. Use Cephalexin 500mg 3 times a day for 5 days - start 09/10/17. Watch for mouth pain or white spots in mouth. Watch for loose stools or diarrhea. *Expected Signs/Symptoms: Improvement of breathing and functional abilities *Notify Physician if: Temp >100.4. Increasing cough/congestion or difficulty breathing. Uncontrollable loose stools. Pain in mouth or with swallowing. *During Business Hours Contact: Nursing staff at care facitily *After Business Hours Contact: Nursing staff at care facility *Pending Lab/Results: No Pending Lab - Referrals/Follow Up *Referrals/Follow Up: Dakota Stallings MD [Family Provider] - 1 Week (Hospital f/u in 1 week. ) - Patient Handouts Patient Handouts: Leukocytosis (GEN), Tachycardia (GEN) - Dismissal Complete Discharge Instructions are:: Complete Attestation Narriative - Attestation Attestation Narrative: 09/09/17 12:04 I have independently interviewed and examined patient prior to discharge. See my progress note from today for details. Medically stable for discharge to home.
--- NOTE | 2017-09-09 12:22 | Extended Care Facility Orders ---
Admission Orders Admit to:: [facility] Allergies/Adverse Reactions: Allergies Sulfa (Sulfonamide Antibiotics) Allergy (Unknown, Verified 11/05/14 19:26) Admitting Diagnosis: Fever,tachycardia,leukocytosis - resolved Admitting Physician: Abraham Barrera MD Attending Physician: Dr Stallings Code Status: Do Not Resuscitate Anticiapted Length of Stay: greater than 30 days Rehab Potential: fair Rehab Prognosis: fair Diet: Mechanical soft with ground meat and [place] thick liquids May use Facility Protocol or Standing Orders: Yes May have flu vaccine: Yes Evaluations/Treatment: second watch sergeantShelter Certification: I certify that SNF services are required to be given on an Inpatient basis because of the patients need for long term care on a continuing basis for the condition(s) for which he/she received inpatient hospital services prior to his/her transfer to the SNF. SNF inpatient care is necessary for the following reasons Indication for Shelter: Not Applicable - Additional Information In Event of Arrest: Do Not Start CPR Resident is Aware of Diagnosis: Yes Referrals: Dakota Stallings MD [Family Provider] - 1 Week (Hospital f/u in 1 week. ) Additional Orders: F/U with Dr Stallings in 1 week. May start cephalexin on 09/10 - continue for 5 days (15 doses). MAXI hose to bilateral lower ext - on in am, may come off at night.
== END 2017-09-09 16:09 ==
LOC: MED 08:15 → ED 08:15 → MED 11:55
PROVIDERS: ADMIT Hospitalist; ATTEND Hospitalist